=== PATIENT | female | born 2000 | race Caucasian/White ===

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

== ENCOUNTER 2020-08-07 16:09 | Emergency (ER) | payer BC | END 2020-08-07 16:14 | disposition home or self-care (01) | LOC: JVIRT 16:09 | DX: Z11.59 Encounter for screening for other viral diseases (principal) | CPT/HCPCS: C9803; Q3014-GT; U0003 ==

== ENCOUNTER 2020-09-21 12:11 | Emergency (ER) | payer BC | END 2020-09-21 14:31 | disposition home or self-care (01) | LOC: JVIRT 12:11 | DX: Z03.818 Encounter for observation for suspected exposure to other biological agents ruled out (principal) | CPT/HCPCS: C9803; Q3014-GT; U0003 ==

== ENCOUNTER 2020-10-10 14:07 | Emergency (ER) | payer BC | END 2020-10-10 14:49 | disposition home or self-care (01) | LOC: JVIRT 14:07 | DX: U07.1 COVID-19 (principal) | CPT/HCPCS: C9803; G2012-GT; U0003 ==